=== PATIENT | male | born 1965 | race African-American/Black ===

== ENCOUNTER 2024-06-12 02:42 | Emergency (ER) | payer OTHER ==
[~2024-06-12] VITALS: Ht 175.3 cm; Wt 102.0 kg
[2024-06-12 02:49] VITALS: O2SAT 100
[2024-06-12] MEDS: KETOROLAC 30MG/ML VIAL IM ONE (07:07)
[2024-06-12] MEDS: ACETAMINOPHEN 325MG TABLET PO ONE (07:07)
[2024-06-12] MEDS ORDERED: TOPUD PO (07:47)
[2024-06-12] MEDS ORDERED: IBUP-2029 MT (07:47)
[2024-06-12 08:03] VITALS: BP 153/92; PULSE 67; RESP 18; TEMP 36.8; O2SAT 99
== END 2024-06-12 08:04 | disposition home or self-care (01) ==
LOC: ER 02:42
DX: M25.551 Pain in right hip (principal); I10 Essential (primary) hypertension; E11.9 Type 2 diabetes mellitus without complications; W10.9XXA Fall (on) (from) unspecified stairs and steps, initial encounter; Y93.89 Activity, other specified; Y92.89 Other specified places as the place of occurrence of the external cause; Y99.8 Other external cause status
CPT/HCPCS: 99284; 73502; 73080; 96372; J1885

== ENCOUNTER 2024-06-25 08:47 | Emergency (ER) | payer OTHER ==
[~2024-06-25] VITALS: Ht 167.6 cm; Wt 90.7 kg
[~2024-06-25 08:47] MED LIST: IBUP-2029 MT; TOPUD PO
[2024-06-25 08:58] VITALS: TEMP 37; O2SAT 99
[2024-06-25] MEDS ORDERED: LIDOCAINE 5% PATCH TOP SCH (09:30)
[2024-06-25] MEDS: LIDOCAINE 5% PATCH TOP NR (09:46)
[2024-06-25] MEDS: KETOROLAC 30MG/ML VIAL IM ONE (09:46)
[2024-06-25] MEDS ORDERED: NAPR-1486 MT (12:14)
[2024-06-25 12:40] VITALS: BP 168/95; PULSE 66; RESP 16; O2SAT 100
== END 2024-06-25 12:38 | disposition home or self-care (01) ==
LOC: ER 08:47
DX: M54.9 Dorsalgia, unspecified (principal); E11.9 Type 2 diabetes mellitus without complications; I10 Essential (primary) hypertension; Z79.899 Other long term (current) drug therapy
CPT/HCPCS: 99285; 71250; 74176; 96372; J1885